=== PATIENT | female | born 1940 | race Caucasian/White ===

== ENCOUNTER 2018-08-11 08:27 | Outpatient (REF) | payer MEDICARE, BC, SELFPAY ==
[2018-08-11 22:47] LABS: Anion Gap 9.1 mmol/L (3-11); BUN 27 mg/dL (7-18); CO2 32.9 mmol/L (21.0-32.0); CREATININE 0.91 mg/dL (0.55-1.02); Calcium 9.9 mg/dL (8.5-10.1); Chloride 101 mmol/L (98-107); Cholesterol 281 mg/dL (50-200); Glucose 93 mg/dL (70-100); HDL Cholesterol 64 mg/dL (40-60); LDL CHOLESTEROL 193 mg/dL (<100); Potassium 3.1 mmol/L (3.5-5.1); Sodium 143 mmol/L (136-145); Triglyceride 114 mg/dL (30-150)
== END 2018-08-11 08:47 ==
LOC: NCHCN 08:27
PROVIDERS: PCP Internal Medicine; Visit Provider Internal Medicine
DX: E78.5 Hyperlipidemia, unspecified (principal); I10 Essential (primary) hypertension
CPT/HCPCS: 80048; 80061; 83721

== ENCOUNTER 2018-09-03 10:05 | Outpatient (REF) | payer MEDICARE, BC, SELFPAY ==
[2018-09-03 21:50] LABS: Anion Gap 11.4 mmol/L (3-11); BUN 23 mg/dL (7-18); CO2 25.6 mmol/L (21.0-32.0); CREATININE 1.15 mg/dL (0.55-1.02); Calcium 9.9 mg/dL (8.5-10.1); Chloride 100 mmol/L (98-107); Glucose 98 mg/dL (70-100); Sodium 137 mmol/L (136-145)
== END 2018-09-03 10:25 ==
LOC: NCHCN 10:05
PROVIDERS: PCP Internal Medicine; Visit Provider Internal Medicine
DX: I10 Essential (primary) hypertension (principal); E78.5 Hyperlipidemia, unspecified
CPT/HCPCS: 80048

== ENCOUNTER 2018-09-09 09:59 | Outpatient (REF) | payer MEDICARE, BC, SELFPAY ==
[2018-09-09 21:09] LABS: Anion Gap 6.5 mmol/L (3-11); BUN 14 mg/dL (7-18); CO2 29.5 mmol/L (21.0-32.0); CREATININE 0.83 mg/dL (0.55-1.02); Calcium 9.3 mg/dL (8.5-10.1); Chloride 104 mmol/L (98-107); Glucose 79 mg/dL (70-100); Potassium 4.3 mmol/L (3.5-5.1); Sodium 140 mmol/L (136-145)
== END 2018-09-09 10:19 ==
LOC: LBN 09:59
PROVIDERS: PCP Internal Medicine; Visit Provider Internal Medicine
DX: I10 Essential (primary) hypertension (principal)
CPT/HCPCS: 80048

== ENCOUNTER 2019-06-01 09:59 | Outpatient (REF) | payer MEDICARE, BC, SELFPAY ==
[2019-06-01 22:18] LABS: Anion Gap 8.8 mmol/L (3-11); BUN 16 mg/dL (7-18); CO2 28.2 mmol/L (21.0-32.0); CREATININE 0.97 mg/dL (0.55-1.02); Calcium 9.5 mg/dL (8.5-10.1); Chloride 103 mmol/L (98-107); Estimated GFR 55.83 (mL/min/1.73m2); Glucose 88 mg/dL (70-100); Sodium 140 mmol/L (136-145)
== END 2019-06-01 10:19 ==
LOC: NCHCN 09:59
PROVIDERS: PCP Internal Medicine; Visit Provider Internal Medicine
DX: I10 Essential (primary) hypertension (principal)
CPT/HCPCS: 80048

== ENCOUNTER 2019-09-14 13:09 | Outpatient (REF) | payer MEDICARE, BC, SELFPAY ==
[2019-09-14 21:55] LABS: Anion Gap 10.3 mmol/L (3-11); BUN 35 mg/dL (7-18); CO2 25.7 mmol/L (21.0-32.0); CREATININE 1.06 mg/dL (0.55-1.02); Calcium 9.5 mg/dL (8.5-10.1); Chloride 101 mmol/L (98-107); Glucose 107 mg/dL (74-106); Potassium 3.9 mmol/L (3.5-5.1); Sodium 137 mmol/L (136-145)
== END 2019-09-14 13:29 ==
LOC: NCHCN 13:09
PROVIDERS: PCP Internal Medicine; Visit Provider Internal Medicine
DX: I10 Essential (primary) hypertension (principal)
CPT/HCPCS: 80048

== ENCOUNTER 2020-04-12 17:29 | Outpatient (REF) | payer MEDICARE, BC, SELFPAY ==
[2020-04-12 21:54] LABS: Anion Gap 8.5 mmol/L (3-11); BUN 29 mg/dL (7-18); CO2 27.5 mmol/L (21.0-32.0); CREATININE 0.91 mg/dL (0.55-1.02); Calcium 10.3 mg/dL (8.5-10.1); Calculated LDL 152 mg/dL (<100); Chloride 105 mmol/L (98-107); Cholesterol 244 mg/dL (<200); Estimated GFR 59.94 (mL/min/1.73m2); Glucose 103 mg/dL (74-106); HDL Cholesterol 58 mg/dL (40-60); Potassium 4.2 mmol/L (3.5-5.1); Sodium 141 mmol/L (136-145); Triglyceride 172 mg/dL (<150)
== END 2020-04-12 17:49 ==
LOC: NCHCN 17:29
PROVIDERS: PCP Internal Medicine; Visit Provider Internal Medicine
DX: I10 Essential (primary) hypertension (principal); E78.5 Hyperlipidemia, unspecified
CPT/HCPCS: 80048; 80061

== ENCOUNTER 2020-10-03 10:22 | Outpatient (REF) | payer MEDICARE, BC, SELFPAY ==
[2020-10-03 14:13] LABS: Anion Gap 9.8 mmol/L (3-11); BUN 36 mg/dL (7-18); CO2 27.2 mmol/L (21.0-32.0); CREATININE 1.2 mg/dL (0.55-1.02); Calcium 10.1 mg/dL (8.5-10.1); Calculated LDL 141 mg/dL (<100); Chloride 102 mmol/L (98-107); Cholesterol 239 mg/dL (<200); Estimated GFR 43.56 (mL/min/1.73m2); Glucose 93 mg/dL (74-106); HDL Cholesterol 66 mg/dL (40-60); Potassium 3.9 mmol/L (3.5-5.1); Sodium 139 mmol/L (136-145); Triglyceride 160 mg/dL (<150)
== END 2020-10-03 10:23 | disposition home or self-care (01) ==
LOC: NCHCN 10:22
PROVIDERS: PCP Internal Medicine; Visit Provider Internal Medicine
DX: E78.5 Hyperlipidemia, unspecified (principal)
CPT/HCPCS: 80048; 80061

== ENCOUNTER 2021-04-01 13:36 | Outpatient (REF) | payer MEDICARE, BC, SELFPAY ==
[2021-04-01 21:38] LABS: Anion Gap 9.2 mmol/L (3-11); BUN 29 mg/dL (7-18); CO2 25.8 mmol/L (21.0-32.0); CREATININE 0.9 mg/dL (0.55-1.02); Calcium 10.1 mg/dL (8.5-10.1); Chloride 104 mmol/L (98-107); Glucose 94 mg/dL (74-106); Potassium 4.2 mmol/L (3.5-5.1); Sodium 139 mmol/L (136-145)
== END 2021-04-01 13:37 | disposition home or self-care (01) ==
LOC: NCHCN 13:36
PROVIDERS: PCP Internal Medicine; Visit Provider Internal Medicine
DX: I10 Essential (primary) hypertension (principal); N28.9 Disorder of kidney and ureter, unspecified
CPT/HCPCS: 80048

== ENCOUNTER 2021-04-08 23:23 | Outpatient (REF) | payer MEDICARE, BC, SELFPAY ==
[2021-04-08 21:51] LABS: Microalb ug/mg Crea 7.2 ug/mg Cr
== END 2021-04-08 23:24 | disposition home or self-care (01) ==
LOC: NCHCN 23:23
PROVIDERS: PCP Internal Medicine; Visit Provider Internal Medicine
DX: I10 Essential (primary) hypertension (principal); N28.9 Disorder of kidney and ureter, unspecified
CPT/HCPCS: 82043; 82570

== ENCOUNTER 2021-10-02 15:08 | Outpatient (REF) | payer MEDICARE, BC, SELFPAY ==
[2021-10-02 15:06] LABS: ALT 19 U/L (14-59); AST 18 U/L (15-37); Albumin 3.4 g/dL (3.4-5.0); Alkaline Phosphatase 75 U/L (46-116); Anion Gap 8.3 mmol/L (3-11); BUN 30 mg/dL (7-18); Bilirubin, Total 0.6 mg/dL (0.2-1.0); CO2 27.7 mmol/L (21.0-32.0); CREATININE 1.1 mg/dL (0.55-1.02); Calcium 9.6 mg/dL (8.5-10.1); Calculated LDL 123 mg/dL (<100); Chloride 105 mmol/L (98-107); Cholesterol 205 mg/dL (<200); Estimated GFR 48.04 (mL/min/1.73m2); Glucose 102 mg/dL (74-106); HDL Cholesterol 62 mg/dL (40-60); Potassium 3.6 mmol/L (3.5-5.1); Sodium 141 mmol/L (136-145); Total Protein 6.6 g/dL (6.4-8.2); Triglyceride 103 mg/dL (<150)
== END 2021-10-02 15:09 | disposition home or self-care (01) ==
LOC: NCHCN 15:08
PROVIDERS: PCP Internal Medicine; Visit Provider Internal Medicine
DX: N18.9 Chronic kidney disease, unspecified (principal); I10 Essential (primary) hypertension; E78.5 Hyperlipidemia, unspecified; E66.9 Obesity, unspecified
CPT/HCPCS: 80053; 80061